=== PATIENT | female | born 1960 | race Caucasian/White ===

== ENCOUNTER → 2017-12-02 | Outpatient (CLI) | payer OTHER ==
[~2017-12-02] MED LIST: ACARBOSE25 MG PO; APAP650 PO; ASPIRIN325 PO; COLACE 100 MG100 MG PO; COLACE100 MG PO; COZAAR 25 MG TA25 M1 PO; CYCLOBENZAPRINE10 MG PO; CYMBALTA PO; CYMBALTA60 MG PO; DIFLUCAN200 MG PO; ELIQUIS5 MG PO; EXCEDRIN SINUS1 EAC2 PO; FERREX 150 PLU1 EAC1 PO; FLUCONAZOLE 10100 MG PO; GABAPENTIN 100100 MG PO; GINGER500 MG PO; GLUCOPHAGE XR500 MG PO; GLUCOPHAGE1000 MG PO; HERBS; HUMALOG100 UNIT/1 SUBQ; HYDROCODON-ACE1 EACH PO; IBUPROFEN 200200 M1 PO; LIDOPATCH1 EACH TOP; LYRICA 50 MG50 MG PO; METFORMIN HCL500 MG PO; MINOCIN100 MG PO; MIRALAX17 GM PO; MOBIC15 MG PO; MS CONTIN30 MG PO; MULTIPLE VIT; NABUMETONE 750750 M1 PO; NORVASC5 MG PO; OXYBUTYNIN 5 MG5 M2 PO; OXYCODONE HCL 55 MG PO; OXYCODONE HCL5 M1 PO; OXYCONTIN10 M1 PO; PERCOCET PO; RELAFEN750 MG PO; RESTORIL15 MG PO; SUBOXONE 8 MG-1 EAC1 SL; SUBOXONE 8 MG-1 EAC2 PO; TRAMADOL 50 MG50 MG PO; TUMERIC/CURCUMIN PO; TYLENOL EX-STR500 M2 PO; VANCO 1 GR1 GM/150 M IV; XARELTO10 MG PO; [UNRECOGNIZED DRUG - OTHER]; [UNRECOGNIZED DRUG - OTHER] PO
== END ==
LOC: M.NUC 11-23 10:11 → M.MRI 12-01 11:30 → M.NUC 09:34 → M.MRI 11:30
DX: M25.552 Pain in left hip (principal); M79.89 Other specified soft tissue disorders; Z96.642 Presence of left artificial hip joint

== ENCOUNTER → 2018-04-09 | Outpatient (CLI) | payer OTHER ==
--- NOTE | ~2018-04-09 | EKG ---
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
[2018-04-09 10:11] LABS: ABSOLUTE BASOPHILS 0.1 thou/uL (0.0-0.2); ABSOLUTE EOSINOPHILS 0.1 thou/uL (0.0-0.7); ABSOLUTE LYMPHOCYTES 3.1 thou/uL (0.8-5.3); ABSOLUTE MONOCYTES 0.9 thou/uL (0.0-1.2); ABSOLUTE NEUTROPHILS 12.6 thou/uL (1.6-8.1); BASOPHILS 0.7 %; EOSINOPHILS 0.5 %; HEMATOCRIT 38.7 % (37.0-47.0); HEMOGLOBIN 12.7 gm/dL (12.0-15.0); LYMPHOCYTES 18.3 %; MCHC 32.9 g/dL (28.0-37.0); MCV 88.3 fL (80.0-100.0); MONOCYTES 5.3 %; MPV 7.2 fl. (7.2-11.1); NUCLEATED RBCS 0 /100WBC; PLATELET COUNT* 557 thou/uL (150-400); POLYS 75.2 %; RBC 4.39 mil/uL (4.20-5.00); RDW-CV 14.2 % (10.5-14.5); WBC 16.7 thou/uL (4.0-11.0)
[2018-04-09 11:24] LABS: ESR (SEDRATE) 24 mm/hr (0-30)
== END ==
LOC: M.RAD 09:37
PROVIDERS: Orthopaedic Surgery
DX: M25.552 Pain in left hip (principal); M16.11 Unilateral primary osteoarthritis, right hip; Z96.642 Presence of left artificial hip joint; Z79.899 Other long term (current) drug therapy; Z79.82 Long term (current) use of aspirin; Z79.84 Long term (current) use of oral hypoglycemic drugs

== ENCOUNTER 2018-06-02 06:17 | Inpatient (IN) | payer OTHER ==
[2018-05-27 08:07] LABS: ABSOLUTE BASOPHILS 0.1 thou/uL (0.0-0.2); ABSOLUTE EOSINOPHILS 0.2 thou/uL (0.0-0.7); ABSOLUTE LYMPHOCYTES 3.2 thou/uL (0.8-5.3); ABSOLUTE MONOCYTES 0.9 thou/uL (0.0-1.2); ABSOLUTE NEUTROPHILS 7.8 thou/uL (1.6-8.1); BASOPHILS 0.5 %; EOSINOPHILS 1.5 %; HEMATOCRIT 38.7 % (37.0-47.0); HEMOGLOBIN 12.6 gm/dL (12.0-15.0); MCH 28.9 pg (26.0-34.0); MCHC 32.6 g/dL (28.0-37.0); MCV 88.7 fL (80.0-100.0); MONOCYTES 7.8 %; MPV 6.9 fl. (7.2-11.1); NUCLEATED RBCS 0 /100WBC; PLATELET COUNT* 562 thou/uL (150-400); POLYS 64.2 %; RBC 4.36 mil/uL (4.20-5.00); RDW-CV 14.5 % (10.5-14.5); WBC 12.2 thou/uL (4.0-11.0)
[2018-05-27 08:18] LABS: APTT 31.9 Seconds (25.0-31.3); PROTIME 9.5 Seconds (9.20-11.50)
[2018-05-27 08:34] LABS: ALBUMIN 3.4 g/dL (3.4-5.0); CALCIUM 9.5 mg/dL (8.5-10.1); CREATININE 0.8 mg/dL (0.6-1.3); POTASSIUM 3.9 mmol/L (3.5-5.1); TOTAL BILIRUBIN 0.1 mg/dL (<0.1-1.0); TOTAL PROTEIN 7.2 g/dL (6.4-8.2)
[2018-05-27 09:17] LABS: ESR (SEDRATE) 41 mm/hr (0-30)
[2018-05-28 02:11] LABS: GLYCOHEMOGLOBIN (HGB A1C) 10.7 % (4.8-5.6)
[~2018-06-02] VITALS: Ht 170.2 cm; Wt 90.7 kg
[~2018-06-02 06:17] MED LIST changes: -COLACE 100 MG100 MG PO; -CYCLOBENZAPRINE10 MG PO; -ELIQUIS5 MG PO; -FERREX 150 PLU1 EAC1 PO; -FLUCONAZOLE 10100 MG PO; -GLUCOPHAGE1000 MG PO; -HUMALOG100 UNIT/1 SUBQ; -LIDOPATCH1 EACH TOP; -MIRALAX17 GM PO; -NORVASC5 MG PO; -RESTORIL15 MG PO; -VANCO 1 GR1 GM/150 M IV
[2018-06-02] MEDS ORDERED: METFORMIN HCL500 MG PO (07:06)
[2018-06-02 07:09] VITALS: BP 154/83
[2018-06-02 16:24] LABS: CALCIUM 8.2 mg/dL (8.5-10.1); CREATININE 1.1 mg/dL (0.6-1.3); POTASSIUM 5.6 mmol/L (3.5-5.1)
[2018-06-02 17:30] VITALS: BP 125/68
--- NOTE | 2018-06-02 19:02 | NUR ---
RECEIVED PT FROM PACU 1700. SHE IS DROWSY, AND ORIENTED X4. VSS. LINE COOK TRACING SR. O2 SAT 93% ON 3L NC. CAPNO MONITOR IN PLACE. ADMISSION ASSESSMENT AND HISTORY COMPLETED. REPOSITIONED FOR COMFORT. IVF INFUSING PER MAR. BED ALARM ON. CALL LIGHT WITHIN REACH. WILL CONTINUE TO MONITOR.
[2018-06-02 20:50] VITALS: BP 138/75
[2018-06-03] VITALS (7 sets, daily range): BP systolic 93–121; BP diastolic 44–75
--- NOTE | 2018-06-03 05:06 | NUR ---
Assumed care of patient at 1930. Full assessment performed and documented; hourly rounding completed for patient safety. Patient c/o severe pain in her left hip the majority of the shift. Pain meds administered as ordered, see NOV. Patient refused to be turned d/t pain. Nurse educated patient on the importance of changing positions frequently after surgery. Monitor shows SR-ST (90s-110s); O2 98% on 3L NC. Patient A&O x4 and drowsy. Right hand IV infusing NS 100 ml/hr. Bailon catheter patent and draining well. Left hip incision site clean and dry, and wound vac in place. Fall precautions in place, call light within patient's reach. Will continue to monitor.
[2018-06-03 05:31] LABS: HEMATOCRIT 28.2 % (37.0-47.0); HEMOGLOBIN 9.1 gm/dL (12.0-15.0); MCH 29.1 pg (26.0-34.0); MCHC 32.4 g/dL (28.0-37.0); MCV 89.8 fL (80.0-100.0); MPV 7.4 fl. (7.2-11.1); RBC 3.14 mil/uL (4.20-5.00); RDW-CV 14.9 % (10.5-14.5); WBC 23.2 thou/uL (4.0-11.0)
[2018-06-03 06:23] LABS: ALBUMIN 2.5 g/dL (3.4-5.0); CALCIUM 7.8 mg/dL (8.5-10.1); CREATININE 1.4 mg/dL (0.6-1.3); MAGNESIUM 1.4 mg/dL (1.8-2.4); POTASSIUM 5.1 mmol/L (3.5-5.1); TOTAL BILIRUBIN 0.3 mg/dL (<0.1-1.0); TOTAL PROTEIN 5.3 g/dL (6.4-8.2)
--- NOTE | 2018-06-03 11:51 | NUR ---
RECEIVED PT CARE 0700. SHE IS ALERT AND ORIENTED X4. VSS. [employer] CONSULTANT TRACING ST WITH BBB. C/O LEFT HIP PAIN, RATES 8/10. PRN PAIN MEDICATION GIVEN WITH PARTIAL RELIEF. LOWER EXTREMITIES ELEVATED ON PILLOWS. SHE REFUSES TO REPOSITION AT TIMES DUE TO HER PAIN LEVEL BEING TOO HIGH, PER THE PATIENT. PICC LINE PLACED PER INFUSION NURSE. IV FLUID BOLUS INFUSING. AM ASSESSMENT CHARTED. MEDS PER NOV. RAYMOND DRAINING CLEAR YELLOW URINE TO DEPENDENT DRAIN. O2 SAT 100% ON 3L NC. TITRATED TO ROOM AIR. CAPNO MONITOR REMOVED. HOURLY ROUNDING CHARTED. CALL LIGHT WITHIN REACH. WILL CONTINUE TO MONITOR.
--- NOTE | 2018-06-03 12:34 | CON ---
[address] [address] CONSULTATION Name: KADEEM SOLIS Room: [address] IN .R.#: [id number] Admission: 06/02/18 Attend Phys: Jey Ronquillo Discharge: Date of : 56 Report #: [id number] THIS REPORT FOR: //name// CC: Shakir Bennett DATE OF SERVICE: 06/02/2018 ATTENDING PHYSICIAN: Yossi Bennett DO. REASON FOR EVALUATION: Septic total hip arthroplasty. HISTORY OF PRESENT ILLNESS: Chart reviewed, patient examined. This is a 57-year-old female, I actually saw in January 2017 with a left thigh abscess. She is post left total hip arthroplasty. She is seen postop. She is a little encephalopathic due to the medication. Apparently, has been going on several days to weeks, has a draining sinus involving left hip. Due to lack of resolution, in spite of the fact that MRI in November was literally unchanged for the last couple of years, did undergo explantation, placement of antibiotic-impregnated cement, has been given some parenteral antimicrobial therapy with vancomycin. ALLERGIES: NONE KNOWN. MEDICATIONS: Include metformin, pantoprazole, apixaban, acetaminophen, insulin, temazepam, p.r.n. analgesics, antiemetics, vancomycin. PAST MEDICAL HISTORY: Diabetes mellitus type 2, previous left total hip arthroplasty, low back surgery, ventral hernia. SOCIAL HISTORY: Smokes a half pack a day. No ethanol or illicit drug use. FAMILY HISTORY: Noncontributory. REVIEW OF SYSTEMS: Somewhat limited due to her postoperative state. PHYSICAL EXAMINATION: GENERAL: She appears somewhat chronically ill. She is in dfuh-ko-gvardqah distress. She does arouse. VITAL SIGNS: Temperature 98.6, pulse 92, respirations 16, blood pressure 154/83. SKIN: Warm, dry, no rashes. HEENT: Otherwise, unremarkable. NECK: Supple. LUNGS: [place] [address] CONSULTATION Name: KADEEM SOLIS Room: [address] IN [facility]#: [id number] Admission: 06/02/18 Attend Phys: Jey Ronquillo Discharge: Date of : 56 Report #: [id number] HEART: Regular. I do not appreciate a murmur. ABDOMEN: Soft. SKIN: She has a wound VAC in place, left hip site. GENITOURINARY: Deferred. RECTAL: Deferred. LABORATORY DATA: Sed rate of 14. Electrolytes: Sodium 134, potassium 5.6, chloride 102, bicarbonate is 24, anion gap of 8, BUN and creatinine 29 and 1.1, glucose has been elevated in the 300s consistently. Lactic acid of 1.7. Operative cultures pending. ASSESSMENT: Left total hip arthroplasty infection, agree with empiric antimicrobial therapy. We will await culture results. Discussed with Dr. Cantu on the unavailability of any recent cultures, we will likely need extended course of parenteral therapy. We will arrange a PICC line in the next couple of days, monitor expectantly. I will go ahead and get a chest x-ray as well. <ELECTRONICALLY SIGNED> By: Gio Reyes MD 06/03/18 1234 1728 [id number] Reyes MD /nt
--- NOTE | 2018-06-03 13:54 | NUR ---
CM attempted to meet with Pt, Pt extremely drowsy and kept falling asleep during assessment. Pt was able to inform CM that she normally resides at home alone and continues to work outside of the home. Discussed possible need for skilled at dc per Drs recommendation, Pt stated that she thinks that she will be fine discharging to home and would be able to manage IVABX if needed. Cm will attempt to meet with Pt later to obtain additional living situation information.
[2018-06-04] VITALS: BP 86/41
[2018-06-04 00:11] LABS: CALCIUM 7.2 mg/dL (8.5-10.1); CREATININE 0.7 mg/dL (0.6-1.3); MAGNESIUM 1.4 mg/dL (1.8-2.4)
[2018-06-04 00:13] LABS: POTASSIUM 3.5 mmol/L (3.5-5.1)
[2018-06-04 05:04] LABS: HEMATOCRIT 22.1 % (37.0-47.0); HEMOGLOBIN 7.2 gm/dL (12.0-15.0); MCHC 32.6 g/dL (28.0-37.0); MCV 88.8 fL (80.0-100.0); MPV 7.6 fl. (7.2-11.1); RBC 2.49 mil/uL (4.20-5.00); RDW-CV 14.6 % (10.5-14.5); WBC 16.5 thou/uL (4.0-11.0)
--- NOTE | 2018-06-04 05:13 | NUR ---
ASSUMED PT CARE REPORT RECEIVED FORM NURSE. PT IS POSRT UP DAY 1 ALERT AWAKE ORIENTED X4 COMPLAINS OF PAIN LEVEL 9 IN LEFT HIP AREA. OXYCONTIN, DILAUDID, AND OXY ADMINSTERED ORDERED AND SCHEDULED DURING THE NIGHT. PT SEEM S NOT TO BE FREE FROM PAIN FOR TOO LONG. WHENEVER SHE IS REPOSITIONED, PAIN IS AT ITS SPIKE. OTHER TECHNIQUES WERE APPLIED SUCH DIM LIGHT, QUIETNESS, AND GENTLE TALK TO RELIEVE PAIN. PT STATUS IS MEDSURG, BUT HR IR REGULAR. IV FLUID INFUSING, VANCO ALSO ADMINISTERED ORDERED. INSULIN 4 UNITS LISPRO GIVEN LAST NIGHT. PT GOT SNACK. ASSESSEMENT PERFORMED REFER TO CHARTING. LEFT HIP DRESSING IS INTACT WOUN VAC FUNTIONING WELL.LITO HOSE IN PLACE, RAYMOND INPLACE. CALL LIGHT AT REACH, LEFT HIP ELEVATED ON PILLOW COMFORTABLE FOR THE PT.
[2018-06-04 05:17] LABS: PREALBUMIN 12.4 mg/dL (18.0-35.7)
[2018-06-04 05:22] LABS: ALBUMIN 1.9 g/dL (3.4-5.0); CALCIUM 7.5 mg/dL (8.5-10.1); CREATININE 0.6 mg/dL (0.6-1.3); MAGNESIUM 1.8 mg/dL (1.8-2.4); POTASSIUM 3.3 mmol/L (3.5-5.1); TOTAL BILIRUBIN 0.2 mg/dL (<0.1-1.0); TOTAL PROTEIN 5.1 g/dL (6.4-8.2)
[2018-06-04 10:53] LABS: % SATURATION 3 % (20-39); IRON < 5 ug/dL (50-175)
--- NOTE | 2018-06-04 12:38 | NUR ---
I have reviewed the documentation by LIUDMILA PERRY from 06/04/18 and I concur with it. EMILIA WARNER
[2018-06-04 16:43] VITALS: BP 123/61
[2018-06-04 20:00] VITALS: BP 109/49
[2018-06-05] VITALS: BP 102/43
[2018-06-05 04:00] VITALS: BP 115/53
[2018-06-05 05:12] LABS: HEMATOCRIT 20.2 % (37.0-47.0); MCH 28.7 pg (26.0-34.0); MCHC 32.9 g/dL (28.0-37.0); MCV 87.2 fL (80.0-100.0); MPV 7.8 fl. (7.2-11.1); RBC 2.32 mil/uL (4.20-5.00); RDW-CV 14.6 % (10.5-14.5); WBC 17.1 thou/uL (4.0-11.0)
[2018-06-05 05:20] LABS: HEMOGLOBIN 6.6 gm/dL (12.0-15.0)
[2018-06-05 05:25] LABS: ALBUMIN 1.8 g/dL (3.4-5.0); CALCIUM 7.6 mg/dL (8.5-10.1); CREATININE 0.6 mg/dL (0.6-1.3); MAGNESIUM 1.7 mg/dL (1.8-2.4); POTASSIUM 2.9 mmol/L (3.5-5.1); TOTAL BILIRUBIN 0.2 mg/dL (<0.1-1.0); TOTAL PROTEIN 5.5 g/dL (6.4-8.2)
--- NOTE | 2018-06-05 05:51 | NUR ---
ASSUMED PT CARE REPORT RECEIVED FROM NURSE. PT IS ALERT AWAKE ORIENTED X 4. COMPLIANS OF PAIN IN LEFT HIP. THAAT IS RELEIVED BY NARCOTICS HAVE RECIEVED NARCO ORDERED AMD SCHEDULED DURING THE SHIFT. Q2 TURN PERFORMED. ELEVATION OF LEFT LEGS TO RELIEVE PRESSURE. LITO HOSE IN PLACE BILATERALLY INLOWER EXTREMITIES. ON RA AND SATURATION ABLVE 95%/ IV VANCO GIVEN SCHEDULED. LIGHT DIN AND QUIETNESS TO PROMOTE REST. THIS AM LAB RESULT WAS CRITICAL. HGB OF 6.6 K OF 2.9. FIRST DOSE OF K AND MAG REPLACEMENT GIVEN. RBC 1 UNIT ORDER RECEIVED FROM DR HOLMAN. CONSENT FRO BLOOD SINGNED. WILL CONTINUE TO MONITOR.
[2018-06-05 08:09] VITALS: BP 111/57
[2018-06-05 10:58] VITALS: BP 130/62; BP 136/61; BP 150/63; BP 151/73
--- NOTE | 2018-06-05 16:17 | NUR ---
POTASSIUM REPLACED. PT RECEIVED 1 UNIT BLOOD. POLAR PACK APPLIED TO LEFT THIGH FOR PAIN CONTROL.
[2018-06-05 17:12] VITALS: BP 129/60
[2018-06-05 20:00] VITALS: BP 105/65
[2018-06-06] VITALS: BP 113/62
--- NOTE | 2018-06-06 02:18 | NUR ---
PT ALERT ORIENTED. BED REST TURN Q 2 HRS. POLAR PACK TO L HIP. PAIN 8/10. PO AND IV PAIN MEDS GIVEN. PT APPEARS TO BE SLEEPING NOW. SEGUNDO JOHNSON. ON RA. MED SURG STATUS.
[2018-06-06 04:00] VITALS: BP 113/69
[2018-06-06 04:51] LABS: HEMATOCRIT 21.7 % (37.0-47.0); HEMOGLOBIN 7.2 gm/dL (12.0-15.0); MCV 87.9 fL (80.0-100.0); MPV 7.1 fl. (7.2-11.1); RBC 2.47 mil/uL (4.20-5.00); RDW-CV 14.7 % (10.5-14.5)
[2018-06-06 05:12] LABS: ALBUMIN 1.7 g/dL (3.4-5.0); CALCIUM 7.9 mg/dL (8.5-10.1); CREATININE 0.5 mg/dL (0.6-1.3); MAGNESIUM 1.6 mg/dL (1.8-2.4); POTASSIUM 3.3 mmol/L (3.5-5.1); TOTAL BILIRUBIN 0.4 mg/dL (<0.1-1.0); TOTAL PROTEIN 5.6 g/dL (6.4-8.2)
--- NOTE | 2018-06-06 06:56 | NUR ---
PT CONTINUES TO TAKE PO AND IV PAIN MEDICATION. SM PORTABLE WOUND VAC TO L HIP.
[2018-06-06 07:50] VITALS: BP 125/53
[2018-06-06 17:12] VITALS: BP 129/70
--- NOTE | 2018-06-06 18:28 | NUR ---
PATIENT RESTING IN BED. TED HURTADOAS UP IN RECLINER MOST OF DAY. PATIENT WORKED WITH PHYSICAL THERAPY THIS AM. PATIENT IS UP WITH 1 WITH WALKER/GAITBELT. PATIENT HAS COMPLAINTS OF PAIN, MEDICATION GIVEN WITH PARTIAL RELIEF. PATIENT GIVEN MIRALAX AND MOM FOR CONSTIPATION, NO BOWEL MOVEMENT TODAY. PATIENT HAS PICC LINE IN PLACE WITH VANCOMYCIN INFUSING AT THIS TIME. PATIENT HAS FAIR APPETITE. PATIENT DENIES ANY NEEDS AT THIS TIME. CALL LIGHT WITHIN REACH. WILL CONTINUE TO MONITOR.
[2018-06-06 19:40] VITALS: BP 168/79
[2018-06-07 04:00] VITALS: BP 140/84
[2018-06-07 04:44] LABS: HEMATOCRIT 22.5 % (37.0-47.0); HEMOGLOBIN 7.3 gm/dL (12.0-15.0); MCHC 32.6 g/dL (28.0-37.0); MCV 88.8 fL (80.0-100.0); MPV 7.4 fl. (7.2-11.1); RBC 2.53 mil/uL (4.20-5.00); RDW-CV 14.7 % (10.5-14.5); WBC 13.7 thou/uL (4.0-11.0)
[2018-06-07 05:13] LABS: ALBUMIN 1.7 g/dL (3.4-5.0); CREATININE 0.5 mg/dL (0.6-1.3); MAGNESIUM 1.7 mg/dL (1.8-2.4); POTASSIUM 3.5 mmol/L (3.5-5.1); TOTAL BILIRUBIN 0.3 mg/dL (<0.1-1.0); TOTAL PROTEIN 5.7 g/dL (6.4-8.2)
--- NOTE | 2018-06-07 05:20 | NUR ---
PT SLEPT ON AND OFF THIS SHIFT. ASSESSMENT DOCUMENTED. MEDS GIVEN PER E-NOV. PICC PATENT. PAIN AND NAUSEA MEDS GIVEN PER E-NOV. WOUND VAC IN PLACE. WILL CONTINUE WITH PLAN OF CARE.
[2018-06-07 10:03] VITALS: BP 117/71
--- NOTE | 2018-06-07 12:17 | NUR ---
FINISHING MANAGER SPOKE TO THE PATIENT TO DISCUSS DISCHARGE PLANNING NEEDS AND IV ABT'S AT D/C. FINISHING MANAGER INFORMED PATIENT OF DIFFERENT BETWEEN HOME WITH IV ABT TEACHING AND SKILLED AT D/C. PATIENT INFORMS THAT SHE 'WOULD LIKE TO GO TO A SKILLED FACILITY, BUT NEED TO GO HOME FOR A FEW HOURS FIRST'. PATIENT CHOSE [facility]. FINISHING MANAGER EXPLAINED WHY GOING HOME FIRST IS NOT POSSIBLE. PATIENT REQUEST TO SPEAK TO THE PHYSICIAN TO EXPLAIN HER REASONING FOR NEEDING GOING HOME FIRST. FINISHING MANAGER CONTACTED MARIA DEL CARMEN AT [facility] TO INFORM OF THE REFERRAL AND FAXED PATIENTS CLINICAL INFO. FINISHING MANAGER ALSO CONTACTED ZOILA TO CHECK BENEFITS IN CASE PATIENT DECIDES TO RETURN HOME AT D/C. TOE TRIMMER AWARE OF SITUATION. CM WILL REMAIN AVAILABLE TO ASSIST AND FOLLOW NEEDED.
[2018-06-07 16:00] VITALS: BP 120/62
--- NOTE | 2018-06-07 18:28 | NUR ---
PT CONSISTENTLY RATES PAIN 7/10 DESPITE MEDICATIONS GIVEN. PT REPORTS SPASMS IN L HIP. MED ORDERED AND GIVEN WITH SOME RELIEF OF SPASM. DRESSING TO L HIP CDI, WOUND VAC IN PLACE. PICC LINE AUGUSTO, SINGLE LUMEN. PT ABLE TO MAKE NEEDS KNOWN, CALL LIGHT IN REACH
[2018-06-07 20:35] VITALS: BP 113/54
[2018-06-07 23:57] VITALS: BP 112/56
[2018-06-08 04:00] VITALS: BP 123/56
[2018-06-08 04:45] LABS: HEMATOCRIT 23.2 % (37.0-47.0); HEMOGLOBIN 7.5 gm/dL (12.0-15.0); MCH 29.1 pg (26.0-34.0); MCHC 32.3 g/dL (28.0-37.0); MCV 90.2 fL (80.0-100.0); MPV 7.2 fl. (7.2-11.1); RBC 2.57 mil/uL (4.20-5.00); RDW-CV 14.8 % (10.5-14.5); WBC 17.7 thou/uL (4.0-11.0)
[2018-06-08 05:05] LABS: CREATININE 0.6 mg/dL (0.6-1.3); MAGNESIUM 1.5 mg/dL (1.8-2.4); POTASSIUM 3.7 mmol/L (3.5-5.1)
--- NOTE | 2018-06-08 06:12 | NUR ---
PT SLEPT ON AND OFF THIS SHIFT. ASSESSMENT DOCUMENTED. MEDS GIVEN PER E-MAR. PICC PATENT. PAIN MEDS GIVEN PER E-MAR PER PATIENT REQUEST. PT UP TO BSC SEVERAL TIMES THIS SHIFT. WOUND VAC IN PLACE. WILL CONTINUE WITH PLAN OF CARE.
[2018-06-08 07:55] VITALS: BP 115/54
[2018-06-08 16:18] VITALS: BP 160/96
--- NOTE | 2018-06-08 17:10 | NUR ---
PATIENT A&OX4, ROOM AIR, RIGHT UPPER ARM PIC SINGLE LUMEN. C/O LEFT HIP PAIN. MEPLEX AND PERVINA WOUND VAC TO LEFT HIP. UP WITH ASSISTX1, WITH GIATBELT AND WALKER. NO BM TODAY. NO OTHER CONCERNS AT THIS TIME. APPROPRAITE AND COOPORATIVE WITH CARE.
[2018-06-08 18:43] LABS: URINE BILIRUBIN NEGATIVE (Negative); URINE BLOOD NEGATIVE (Negative); URINE CLARITY CLEAR; URINE COLOR YELLOW; URINE GLUCOSE-RANDOM NEGATIVE (Negative); URINE KETONES NEGATIVE (Negative); URINE LEUKOCYTES-REFLEX NEGATIVE (Negative); URINE NITRITE-REFLEX NEGATIVE (Negative); URINE PROTEIN NEGATIVE (Negative); URINE SPECIFIC GRAVITY <= 1.005 (1.005-1.030); URINE UROBILINOGEN 0.2 E.U./dl (0.2-1.0)
[2018-06-09 00:30] VITALS: BP 127/63
[2018-06-09 04:00] VITALS: BP 126/64
--- NOTE | 2018-06-09 05:11 | NUR ---
PATIENT HAS REMAINED ALERT AND ORIENTED X 4 THROUGHOUT THE SHIFT AND RESTING QUIETLY AT HOURLY ROUNDS. MEDICATED Q3H WITH ORAL PAIN MEDICAITON AND ADDITIONALLY SCHEDULED ORAL PAIN MEDICAITON AND 2 DOSES OF FLEXERIL. PATIENT CONTINUES TO STATE PAIN 7-05/07. PREVENA WOUND VAC INTACT LEFT HIP. LEFT HIP/THIGH REMAINS QUITE EDEMATOUS AND WARM TO TOUCH. IV ANTIBIOTICS PROVIDED PER ORDERS. AFEBRILE, VITAL SIGNS STABLE. TRANSFERING TO [facility] [place] MAINTAINING 50% WEIGHT-BEARING, WALKER AND GAIT BELT. MAGNESIUM REPLACED OVER THE LAST 24 HOURS. RE-DRAW THIS AM. CONTINUE TO MONITOR.
[2018-06-09 06:40] LABS: HEMATOCRIT 24.3 % (37.0-47.0); HEMOGLOBIN 7.9 gm/dL (12.0-15.0); MCH 29.2 pg (26.0-34.0); MCHC 32.4 g/dL (28.0-37.0); MPV 6.6 fl. (7.2-11.1); RBC 2.7 mil/uL (4.20-5.00); RDW-CV 15.4 % (10.5-14.5); WBC 18.7 thou/uL (4.0-11.0)
[2018-06-09 07:13] LABS: ALBUMIN 1.9 g/dL (3.4-5.0); CALCIUM 8.2 mg/dL (8.5-10.1); CREATININE 0.6 mg/dL (0.6-1.3); MAGNESIUM 1.8 mg/dL (1.8-2.4); TOTAL BILIRUBIN 0.2 mg/dL (<0.1-1.0); TOTAL PROTEIN 5.7 g/dL (6.4-8.2)
[2018-06-09 07:55] VITALS: BP 116/64
[2018-06-09] MEDS ORDERED: RESTORIL15 MG PO (10:44)
[2018-06-09] MEDS ORDERED: OXYCODONE HCL 55 MG PO (10:44)
[2018-06-09] MEDS ORDERED: FERREX 150 PLU1 EAC1 PO (10:44)
[2018-06-09] MEDS ORDERED: COLACE 100 MG100 MG PO (10:44)
[2018-06-09] MEDS ORDERED: FLUCONAZOLE 10100 MG PO (10:44)
[2018-06-09] MEDS ORDERED: MIRALAX17 GM PO (10:44)
[2018-06-09] MEDS ORDERED: ELIQUIS5 MG PO (10:44)
[2018-06-09] MEDS ORDERED: LIDOPATCH1 EACH TOP (10:44)
[2018-06-09] MEDS ORDERED: CYCLOBENZAPRINE10 MG PO (10:44)
[2018-06-09 13:22] VITALS: BP 116/64
--- NOTE | 2018-06-09 13:44 | NUR ---
NOTIFIED MARIA DEL CARMEN/[facility] THAT PT.HAS DISCHARGE ORDERS. SHE SAID SHE IS STILL WAITING ON INSURANCE AUTHORIZATION. PT.'S FRIEND CANNOT TRANSPORT PT.TODAY SO WILL NEED VAN. MARIA DEL CARMEN HOPES TO GET AUTH BY LATER TODAY. INFORMED NURSING.
[2018-06-09 15:53] VITALS: BP 113/72
--- NOTE | 2018-06-09 17:43 | NUR ---
PATEINT A&OX4, ROOM AIR, RIGHT UPPER ARM PIC SINGLE LUMEN SALINE LOCK WITH ABX. UP WITH ASSISTX1 WITH WALKER AND GIATBELT. LEFT HIP ABX SPACER, MEPLEX DRESSING IN PLACE, WOUND VAC DISCONTINUED BY PHYSICIAN TODAY. PATIENT PLANNED FOR DISCHARGE TO [facility] TODAY, STILL AWAITING INSURANCE AUTHARIZATION. C/O PIAN, PARTIAL RELIEF WITH MEDICATION. COLACE, MIRALAX, AND MILK OF MAG GIVEN FOR BOWEL MOVEMENT, NO RESULTS AT THIS TIME. NO OTHER CONCERNS AT THIS TIME. APPROPRIATE AND COOPORATIVE WITH CARE.
[2018-06-09 20:35] VITALS: BP 124/56
[2018-06-10 00:20] VITALS: BP 126/72
[2018-06-10 04:00] VITALS: BP 127/61
--- NOTE | 2018-06-10 06:20 | NUR ---
PATIENT HAS REMAINED ALERT AND ORIENTED X 4 THROUGHOUT THE SHIFT AND RESTING AT INTERVALS ON HOURLY ROUNDS. UP IN CHAIR DURING THE NIGHT. PATIENT HAS NOTED A SHARP PAIN DISTAL INCISION AREA WITH FLEXION LEFT KNEE BACK WHEN POSITIONING TO STAND OR DOING HER BED EXERCISES. OVERALL PAIN REMAINS AT 6/10 AND HAS REQUESTED PRN PAIN MEDICATION Q3H. DRESSING INTACT WITH MOD AREA CONTAINED DRAINAGE. LITO HOSE WASHED OVERNIGHT AFTER GETTING WET WITH A VOID. EDEMA LLE, ESPECIALLY AT HIP/THIGH, REMAINS. ANTIBIOTICS PER ORDERS PROVIDED. VITAL SIGNS STABLE. CONTINUE TO MONITOR.
[2018-06-10 08:30] VITALS: BP 128/72
[2018-06-10 08:32] LABS: HEMATOCRIT 23.3 % (37.0-47.0); HEMOGLOBIN 7.4 gm/dL (12.0-15.0); MCH 28.9 pg (26.0-34.0); MCHC 31.9 g/dL (28.0-37.0); MCV 90.7 fL (80.0-100.0); MPV 7.4 fl. (7.2-11.1); NUCLEATED RBCS 0 /100WBC; PLATELET COUNT* 572 thou/uL (150-400); RBC 2.57 mil/uL (4.20-5.00); RDW-CV 15.3 % (10.5-14.5); WBC 14.9 thou/uL (4.0-11.0)
[2018-06-10 08:55] LABS: CALCIUM 7.9 mg/dL (8.5-10.1); CREATININE 0.5 mg/dL (0.6-1.3)
[2018-06-10 10:19] LABS: ABSOLUTE EOSINOPHILS 0.4 thou/uL (0.0-0.7); ABSOLUTE LYMPHOCYTES 2.4 thou/uL (0.8-5.3); ABSOLUTE MONOCYTES 0.9 thou/uL (0.0-1.2); ABSOLUTE NEUTROPHILS 11.2 thou/uL (1.6-8.1); METAMYELOCYTES 1 %; MYELOCYTES 4 %
[2018-06-10 10:24] LABS: PLATELET ESTIMATE INCREASED
[2018-06-10 10:26] LABS: ANISOCYTOSIS 1+; HYPOCHROMASIA 2+; MACROCYTES 1+; MICROCYTES 1+; POIKILOCYTOSIS 1+; POLYCHROMASIA 2+
[2018-06-10 10:27] LABS: TARGET CELLS 1+
--- NOTE | 2018-06-10 11:52 | NUR ---
Nutrition: Pt assessed yday for LOS, and pt was supposed to discharge. Pt was awaiting insurance auth for SNF. Pt will discharge today. No nutrition interventions needed. Low risk.
--- NOTE | 2018-06-10 16:00 | NUR ---
MARIA DEL CARMEN[facility] CALLED CM AND SAID THEY RECEIVED INSURANCE AUTH ON PT. HOWEVER, THEY WILL NOT HAVE A BED AVAILABLE. THE PT.THAT'S ROOM THEY WERE GOING TO GIVE THIS, PT.IS NOT LEAVING. MALA TILLMAN SPOKE WITH PT. PT.SAID IT WAS "OK TO FAX REFERRAL ANYWHERE". CM FAXED REFERRAL TO [facility].
--- NOTE | 2018-06-10 16:22 | NUR ---
PATIENT HAS BEEN DC'D FOR 2 DAYS NOW. WE ARE STILL WAITING ON A BED AT A FACILITY. ALERT AND ORIENTED X'S 4. VITAL SIGNS AND SPO2 STABLE. TOLERATED DIET, NO NAUSEA AND VOMITING. PASSED BM TODAY, VOIDED WITHOUT ISSUE. DENIED PAIN. COMPLETED HOURLY ROUNDING. CALL LIGHT WITHIN REACH. WILL CONTINUE TO MONITOR.
[2018-06-10 21:00] VITALS: BP 104/44; BP 107/44
--- NOTE | 2018-06-11 05:51 | NUR ---
PATIENT REMAINS ALERT AND ORIENTED X4 THROUGHOUT FHIST. VITAL SIGNS STABLE ON ROOM AIR. PICC LINE PATENT IN THE RIGHT UPPER ARM SALINE LOCKED. PAIN MANAGED WITH PO MEDICATION. DENIES NAUSEA. TRANSFERS WITH ASSIST X1 WITH GAITBELT AND WALKER TO THE BEDSIDE COMMODE. MAINTAINED 50% WEIGHT BEARING ON LEFT LEG. TOLERATING DIET. POLAR PACK IN PLACE TO LEFT HIP. MEPILEX DRESSING CLEAN, DRY AND INTACT. RESTING COMFORTABLY THROUGHOUT THE NIGHT. CALL LIGHT WITHIN REACH. NURSING WILL CONTINUE TO MONITOR.
--- NOTE | 2018-06-11 10:49 | NUR ---
CALL OUT TO [facility] TO SEE IF THEY CAN ACCEPT PT. SPOKE WITH JEREMIAH/RUSS JACKMAN. THEY ARE REVIEWING REFERRAL. CALL BACK FROM FELICITAS/GOKUL,WHO STATED THEY ARE GOING TO HAVE TO CHECK WITH [facility] TO SEE IF THEY CAN ACCEPT PT.DUE TO THE COST OF THE IV VANC,SINCE IT IS Q 8HRS. THEY WILL THEN NEED TO GET INS. AUTHORIZATION.
[2018-06-11 16:50] VITALS: BP 120/57
--- NOTE | 2018-06-11 19:34 | NUR ---
ALERT AND ORIENTED X4. UP WITH ASSIST X1 WITH WALKER AND GAIT BELT TO COMMODE. PICC IS PATENT AND SALINE LOCKED. PAIN BEING MANAGED WITH PO PAIN MEDICATION. DENIES NAUSEA. PT/OT WORKED WITH PATEINT THIS SHIFT. WAITING ON SKILLED PLACEMENT FOR DC. DRESSING CHANGED WITH DR. PICKARD THIS AM, C/D/I. VSS ON ROOM AIR. HOURLY ROUNDS HAVE BEEN MAINTAINED THROUGHOUT SHIFT. CALL LIGHT IS WITHIN REACH. NURSING WILL CONTINUE TO MONITOR.
[2018-06-11 20:00] VITALS: BP 138/64
[2018-06-12 00:40] VITALS: BP 121/62
[2018-06-12 05:13] LABS: HEMATOCRIT 21.6 % (37.0-47.0); HEMOGLOBIN 7.1 gm/dL (12.0-15.0); MCH 29.7 pg (26.0-34.0); MCHC 32.8 g/dL (28.0-37.0); MCV 90.5 fL (80.0-100.0); MPV 6.9 fl. (7.2-11.1); RBC 2.38 mil/uL (4.20-5.00); RDW-CV 15.4 % (10.5-14.5); WBC 11.1 thou/uL (4.0-11.0)
--- NOTE | 2018-06-12 05:37 | NUR ---
ASSUMED CARE OF PATIENT AT 1900 O2 SAT IS MAINTAINED ON RA THE PATIENT CONTINUES TO GET UP WITH ASSIST X 1 with walker TO THE [facility] [place] [place] WEIGHT BEARING LIMITATIONS CONTINUE ROUTINE INTERVENTIONS CONTINUE TO BE EFFECTIVE FOR SX MANAGEMENT FREQUENT DRESSING CHANGES THIS SHIFT FO LEFT HIP SEROSANGUINOUS DRAINAGE IN MODERATE TO LARGE AMOUNTS NOTED COMING FROM SITE PATIENT CONTINUES TO PROGRESS TOWARDS GOALS SAFETY INTERVENTIONS CONTINUE BED LOWERED WHEELS LOCKED SIDE RAILS UP X 2 CALL LIGHT IN REACH REPORT TO BE GIVEN TO ONCYOSSI TALLEY
[2018-06-12 06:11] LABS: CALCIUM 7.9 mg/dL (8.5-10.1); CREATININE 0.6 mg/dL (0.6-1.3); MAGNESIUM 1.9 mg/dL (1.8-2.4); POTASSIUM 3.6 mmol/L (3.5-5.1)
[2018-06-12 08:00] VITALS: BP 124/53
--- NOTE | 2018-06-12 14:57 | NUR ---
Called Randy Oliver and am awaiting return call re: bed availability and acceptance. Referral sent to [place].
[2018-06-12 16:01] VITALS: BP 115/56
--- NOTE | 2018-06-12 19:12 | NUR ---
PT ALERT AND ORIENTED X 4. PT ADMINISTERED PO PAIN MEDICATION DURING SHIFT. DENIES NAUSEA. PICC LINE RIGHT UPPER ARM PATENT. PROVENA PLACED ON LEFT HIP INCISION AT 0810. PT UP WITH MIN ASSIST X 1. THIGH HIGH LITO HOSE ON. POLAR PACK IN USE ON LEFT HIP. VS STABLE. HOURLY ROUNDS MAINTAINED. WILL USE CALL LIGHT FOR ASSIST. CALL LIGHT WITHIN REACH. NURSING TO CONTINUE TO MONITOR.
[2018-06-12 19:45] VITALS: BP 123/50
[2018-06-13 04:32] LABS: HEMOGLOBIN 7.2 gm/dL (12.0-15.0); MCH 29.4 pg (26.0-34.0); MCHC 32.7 g/dL (28.0-37.0); MCV 89.8 fL (80.0-100.0); MPV 6.8 fl. (7.2-11.1); RBC 2.45 mil/uL (4.20-5.00); RDW-CV 15.5 % (10.5-14.5); WBC 12.6 thou/uL (4.0-11.0)
[2018-06-13 04:52] LABS: ALBUMIN 1.9 g/dL (3.4-5.0); CALCIUM 7.9 mg/dL (8.5-10.1); CREATININE 0.7 mg/dL (0.6-1.3); MAGNESIUM 1.8 mg/dL (1.8-2.4); POTASSIUM 4.1 mmol/L (3.5-5.1); TOTAL BILIRUBIN 0.1 mg/dL (<0.1-1.0); TOTAL PROTEIN 5.3 g/dL (6.4-8.2)
--- NOTE | 2018-06-13 04:56 | NUR ---
PATIENT REMAINS ALERT AND ORIENTED X4 THROUGHOUT SHIFT. VITAL SIGNS STABLE ON ROOM AIR. PICC LINE PATENT IN THE RIGHT UPPER ARM. INFUSED ANTIBIOTICS PER ORDERS. PAIN MANGED WITH PO MEDICATION. DENIES NAUSEA. TOLERATING DIET. TRANSFERS WITH ONE ASSIST TO THE BEDSIDE COMMODE WITH WALKER. PATIENT HAS BEEN REQUESTING TO WALK AROUND ROOM. PATIENT EDUCATION ON 50% WEIGHT BEARING ON LEFT LEG. AMBULATING AROUND ROOM WITH NURSING STAFF ASSIST. POLAR PACK IN PLACE. LITO HOSE AND SCD'S IN PLACE. REPOSITIONING SELF IN BED. HOURLY ROUNDING COMPLETE. NURSING WILL CONTINUE TO MONITOR.
[2018-06-13 08:00] VITALS: BP 119/55
[2018-06-13 16:33] VITALS: BP 152/87
[2018-06-13] MEDS ORDERED: NORVASC5 MG PO (17:30)
[2018-06-13 17:40] VITALS: BP 121/42; BP 133/56; BP 134/57; BP 137/58
--- NOTE | 2018-06-13 19:43 | NUR ---
PT ALERT AND ORIENTED X 4. FLAT AFFECT. PAIN WAS MANAGED WITH PO PAIN MEDS. DENIES NAUSEA. PICC LINE PATENT. PREVENA WOUND VAC CANNISTER CHANGED X 2. PT UP WITH SBA X 1. VS STABLE. HOURLY ROUNDS MAINTAINED. WILL USE CALL LIGHT FOR ASSISTANCE. CALL LIGHT WITHIN REACH. 1 UNIT OF PRBCS INFUSING PER ORDER DUE TO HGB @ 7.2 AT 1730. NURSING TO CONTINUE TO MONITOR.
[2018-06-13 19:53] VITALS: BP 134/57
--- NOTE | 2018-06-14 05:30 | NUR ---
PATIENT HAS REMAINED ALERT AND ORIENTED X 4 THROUGHOUT THE SHIFT AND RESTING QUIETLY ON HOURLY ROUNDS. UP TO BSC X 4. MOD BM. ALSO AMBULATED WITH STAFF IN ROOM TO DOOR AND BACK X 2. STEADY GAIT MAINTAINING 50% WEIGHT BEARING. ONE UNIT BLOOD COMPLETED THIS SHIFT. PATIENT TOLERATED WELL. MEDICATED FOR PAIN X 3. PATIENT CONSISTENTLY RATING HER PAIN 6/10. LITO YOUNG, SCD'S AND [facility] IN USE. PREVENA WOUND VAC TO LEFT HIP. CAASSETTE CHANGED X 2 OVERNIGHT. SEROSANGUINEOUS DRAINAGE. VITAL SIGNS STABLE. CONTINUE TO MONITOR.
[2018-06-14] MEDS ORDERED: OXYCODONE HCL 55 MG PO (08:39)
[2018-06-14] MEDS ORDERED: GLUCOPHAGE1000 MG PO (08:39)
[2018-06-14] MEDS ORDERED: HUMALOG100 UNIT/1 SUBQ (08:39)
[2018-06-14] MEDS ORDERED: OXYCONTIN10 M1 PO (08:39)
[2018-06-14 08:40] VITALS: BP 145/61
[2018-06-14 09:06] LABS: HEMATOCRIT 27.3 % (37.0-47.0); HEMOGLOBIN 8.8 gm/dL (12.0-15.0); MCH 29.1 pg (26.0-34.0); MCHC 32.4 g/dL (28.0-37.0); MCV 89.7 fL (80.0-100.0); RBC 3.04 mil/uL (4.20-5.00); RDW-CV 15.1 % (10.5-14.5); WBC 13.7 thou/uL (4.0-11.0)
[2018-06-14 09:09] LABS: CALCIUM 8.5 mg/dL (8.5-10.1); CREATININE 0.7 mg/dL (0.6-1.3)
--- NOTE | 2018-06-14 09:25 | NUR ---
SPOKE WITH RICHIE/JESSE HARRELL. SHE IS CALLING FOR INSURANCE AUTH THIS AM. SHE WILL LET CM KNOW WHEN/IF OBTAINED.
--- NOTE | 2018-06-14 15:10 | NUR ---
PREVENA WOUND VAC CANNISTER CHANGED AT THIS TIME. DR. GASCA AND DR. PICKARD INFORMED OF INCREASED DRAINAGE THIS AM.
[2018-06-14 16:00] VITALS: BP 152/58
--- NOTE | 2018-06-14 16:30 | NUR ---
RICHIE/JESSE HARRELL STILL WORKING ON GETTING AUTH FROM INSURANCE. SHE DOES NOT FEEL IT WILL HAPPEN TODAY. SHE SAID INSURANCE AUTH PROCESS IS DIFFERENT. THE REQUESTED AUTH PROCESS JUST GOES TO A BRI DUGGAN AT INSURANCE AND IT IS UP TO THEM TO GIVE THE AUTH. THERE IS NO DEDICATED REVIEWER THAT DOES JUST THE AUTHORIZATIONS.
--- NOTE | 2018-06-14 16:39 | 2DMMODE ---
[place] [address] 2 D/M-MODE ECHOCARDIOGRAM Name: KADEEM SOLIS Room: [address] IN [facility]#: [id number] Admission: 06/02/18 Attend Phys: Yossi Bennett Discharge: Date of : 56 Date of Service: 06/14/18 1638 Report #: [id number] THIS REPORT FOR: //name// APPROVED REPORT Study performed: 06/14/2018 10:02:20 EXAM: Comprehensive 2D, Doppler, and color-flow Echocardiogram Patient Location: In-Patient Room #: [facility] Status: routine BSA: 2.02 HR: 77 bpm BP: 134/57 mmHg Rhythm: NSR Other Information Study Quality: Good Indications Murmur 2D Dimensions IVSd: 10.05 (7-11mm) LVOT Diam: 19.49 (18-24mm) LVDd: 45.48 mm PWd: 11.42 (7-11mm) Ascending Ao: 30.42 (22-36mm) LVDs: 29.92 (25-40mm) Aortic Root: 31.68 mm Volumes Left Atrial Volume (Systole) LA ESV Index: 25.10 mL/m2 Aortic Valve AoV Peak Hilario.: 1.97 m/s AO Peak Gr.: 15.58 mmHg LVOT Max P.54 mmHg AO Mean Gr.: 8.46 mmHg LVOT Mean P.47 mmHg LVOT Max V: 1.37 m/s AO V2 VTI: 38.78 cm LVOT Mean V: 0.84 m/s FLEX (VTI): 2.25 cm2 LVOT V1 VTI: 29.21 cm Mitral Valve E/A Ratio: 1.06 MV Decel. Time: 211.34 ms MV E Max Hilario.: 1.10 m/[place] [address] 2 D/M-MODE ECHOCARDIOGRAM Name: KADEEM SOLIS Room: [address] IN .R.#: [id number] Admission: 06/02/18 Attend Phys: Yossi Bennett Discharge: Date of : 56 Date of Service: 06/14/18 1638 Report #: [id number] MV PHT: 61.29 ms MVA (PHT): 3.59 cm2 TDI E/Lateral E': 6.88 E/Medial E': 8.46 Medial E' Hilario.: 0.13 m/s Lateral E' Hilario.: 0.16 m/s Pulmonary Valve PV Peak Hilario.: 1.26 m/s PV Peak Gr.: 6.37 mmHg Tricuspid Valve RAP Estimate: 5.00 mmHg TR Peak Gr.: 28.48 mmHg RVSP: 33.48 mmHg PA Pressure: 33.48 mmHg Left Ventricle The left ventricle is normal size. There is normal LV segmental wall motion. There is normal left ventricular wall thickness. Left ventricular systolic function is normal. The left ventricular ejection fraction is within the normal range. LVEF is 60-65%. The left ventricular diastolic function is normal. Right Ventricle The right ventricle is normal size. The right ventricular systolic function is normal. Atria The left atrium size is normal. The right atrium size is normal. Aortic Valve The aortic valve is normal in structure. No aortic regurgitation is present. There is no aortic valvular stenosis. Mitral Valve The mitral valve is normal in structure. Mild mitral regurgitation. No evidence of mitral valve stenosis. Tricuspid Valve The tricuspid valve is normal in structure. Mild tricuspid regurgitation estimated pa pressure 35 mm Hg Pulmonic Valve Pulmonic valve is not well visualized. There is no pulmonic valvular regurgitation[place] [address] 2 D/M-MODE ECHOCARDIOGRAM Name: KADEEM SOLIS Room: [address] IN ..#: [id number] Admission: 06/02/18 Attend Phys: Yossi Bennett Discharge: Date of : 56 Date of Service: 06/14/18 1638 Report #: [id number] Great Vessels The aortic root is normal in size. IVC is normal in size and collapses with >50% inspiration Pericardium There is no pericardial effusion. <Conclusion> LVEF is 60-65%. Mild mitral regurgitation. Mild tricuspid regurgitation estimated pa pressure 35 mm Hg <ELECTRONICALLY SIGNED> By: Alan Espino MD, FACC 06/14/18 1638 1638 1638 Alan Espino MD, FACC /INF
--- NOTE | 2018-06-14 17:41 | NUR ---
PT REMAINED ALERT AND ORIENTED THIS SHIFT. PT IS ON RA. PT IS 50% WT BEAR TO LT. HIP. PT IS STANDY BY ASSIST WITH WALKER. R. PICC SINGLE LUMEN IN PLCE. L. HIP DRAINING AND PROVENA CHANGED ONCE THIS SHIFT. POLAR PACK IN PLACE. PT REQUESTED OXY IR, FLEXERIL, AND IBUPROFEN. CALL LIGHT IN REACH. BED ALARM ON. WILL CONTINUE TO MONITOR.
--- NOTE | 2018-06-14 18:31 | NUR ---
NURSING DOCUMENTATION BY TREMAYNE Cristina RN REVIEWED
[2018-06-15 00:20] VITALS: BP 151/62
[2018-06-15 04:30] VITALS: BP 160/65
[2018-06-15 08:00] VITALS: BP 142/57
[2018-06-15 08:09] LABS: HEMATOCRIT 26.8 % (37.0-47.0); HEMOGLOBIN 8.7 gm/dL (12.0-15.0); MCH 29.2 pg (26.0-34.0); MCHC 32.3 g/dL (28.0-37.0); MCV 90.2 fL (80.0-100.0); MPV 6.7 fl. (7.2-11.1); RBC 2.97 mil/uL (4.20-5.00); WBC 12.9 thou/uL (4.0-11.0)
--- NOTE | 2018-06-15 08:19 | NUR ---
PATIENT HAS SLEPT OFF AND ON DURING SHIFT. PAIN WELL CONTROLLED WITH ORAL PAIN MEDICATIONS AND CHARTED. VSS ON RA. DRESSING TO LEFT HIP IS C/D/I. ORTHO HERE THIS AM AND CHANGED DRESSING AND REMOVED INCISION WOUND VAC. PICC LINE TO RIGHT UPPER ARM-SL. PATIENT IS UP TO [facility] GAITBELT AND WALKER AND IS STEADY ON FEET. LITO HOSE AND SCD'S IN PLACE. PATIENT INSTRUCTED TO USE CALL LIGHT WHEN NEEDING ASSISTANCE. HOURLY ROUNDS MADE. WILL CONTINUE WITH PLAN OF CARE AND NURSING TO MONITOR.
[2018-06-15 09:02] VITALS: BP 116/64
--- NOTE | 2018-06-15 12:03 | NUR ---
PT.HAVING ALOT OF DRAINAGE FROM HIP WOUND. [employer] WOUND VAC PLACED BY JOCELINE,CHROME TANNER. WANTS ONLY [employer] WOUND VAC,NO OTHER BRAND. NOTIFIED RICHIE/JESSE HARRELL. ORTHO SAID HE WANTS PT.DISCHARGED TODAY. SEE ORDER.
--- NOTE | 2018-06-15 13:00 | NUR ---
FAXED ADDITIONAL CLINICAL INFORMATION TO RICHIE/JESSE HARRELL. SHE WILL SEND TO INSURANCE. 7002-CM LEFT MESSAGE FOR CM AT PT'S INSURANCE TO CALL THIS CM BACK. DECEMBER,RN/JAMIR CALLED ME BACK. SHE SAID AUTH REQUEST FROM JESSE WAS CALLED IN YESTERDAY AM. EXPLAINED SITUATION OF LONG WAIT TO GET AUTH EVEN THO SNF WAS [facility] AT A DIFFERENT FACILITY LAST WEEK AND THEN THEY DID NOT HAVE A BED. SHE SAID I COULD FAX IN INFORMATION DIRECTLY. FAXED UPDATED CLINICALS TO RONALD Fortune/JAMIR [phone].
--- NOTE | 2018-06-15 14:35 | NUR ---
WOUND CARE NOTE: ASSISTED TEAM WITH SWITCHING PREVENA TO VAC ULTA DUE TO AMOUNT OF DRAINAGE FROM INCISION SITE. PATIENT STILL REMAINS WITH PREVENA DRESSING, BUT NOW HAS VAC ULTA MACHINE.
--- NOTE | 2018-06-15 15:08 | NUR ---
PATIENT STATED THE PT MADE HER UNCOMFORTABLE THIS AFTERNOON BECAUSE HE PUT HIS HAND ON HER BACK TO LONG. REQUESTED ANOTHER PT FOR PATIENT. PATIENT HAD A VISITOR IN ROOM DURING PT SESSION THIS AFTERNOON.
--- NOTE | 2018-06-15 15:10 | NUR ---
DR. JERNIGAN NOTIFIED THAT DR. PICKARD WAS CONCERNED OF A POSSIBLE SERMOA AT SURGICAL SITE. ALSO INFORMED THAT THE PREVENA WOUND VAC WAS ATTACHED TO THE LARGER WOUND VAC CANNISTER DUE TO INCREASE IN DRAINAGE.
[2018-06-15 16:00] VITALS: BP 146/58
--- NOTE | 2018-06-15 16:20 | NUR ---
CALL FROM RICHIE/JESSE HARRELL. SHE HAS RECEIVED AUTH FROM PT.'S INSURANCE. THEY ARE WAITING ON DELIVERY OF [employer] WOUND VAC, WHICH IS PROMISED FOR TOMORROW AM. SHE SAID SHE WILL CALL WHEN IS ARRIVES. MAYANK BENNETT NOTIFIED.
--- NOTE | 2018-06-15 18:22 | NUR ---
PT REMAINED ALERT AND ORIENTED. PT HAS WOUND VAC APPLIED TO LEFT HIP INCISION. SEROSANGUINOUS DRAINAGE. PT HAS C/O PAIN, OXYCONTIN SCHEDULED ADMINISTERED, OXY IR ADMINISTERED AND SCHEDULED PRN Q4, LAST GIVEN 1622. FLEXERIL REQUESTED BY PT, LAST GIVEN 1622 AND CAN BE GIVEN PRN Q6. PT REQUESTS MEDICATIONS RIGHT WHEN THEY ARE AVAILABLE TO BE GIVEN. PT HAS BEEN UP WITH STANDBY TO BATHROOM. PLACEMENT FOUND FOR PT TO DC TOMORROW. CALL LIGHT IN REACH. BED ALARM ON. WILL CONTINUE TO MONITOR.
--- NOTE | 2018-06-15 18:36 | NUR ---
NURSING DOCUMENTATION BY TREMAYNE Cristina RN REVIEWED
[2018-06-16] VITALS: BP 178/95
[2018-06-16 04:00] VITALS: BP 148/69
[2018-06-16 05:29] LABS: HEMATOCRIT 25.8 % (37.0-47.0); HEMOGLOBIN 8.3 gm/dL (12.0-15.0); MCH 28.6 pg (26.0-34.0); MCHC 32.2 g/dL (28.0-37.0); MPV 7.2 fl. (7.2-11.1); RBC 2.9 mil/uL (4.20-5.00); RDW-CV 15.1 % (10.5-14.5); WBC 11.3 thou/uL (4.0-11.0)
--- NOTE | 2018-06-16 06:30 | NUR ---
PATIENT HAS BEEN RESTLESS DURING THE NIGHT AT TIMES. MEDICATION GIVEN ORDERED AND CHARTED. VSS ON RA. NO C/O NAUSEA OR VOMITING. PATIENT IS UP WITH ASSIST X 1 WITH GAITBELT AND WALKER TO THE BATHROOM. DRESSING TO LEFT HIP IS C/D/I AND WOUND VAC IN PLACE WITH SMALL AMOUNT OF SEROSANGUINOUS DRAINAGE. LITO YOUNG AND SCD'S ON. PATIENT INSTRUCTED TO USE CALL LIGHT WHEN NEEDING ASSISTANCE. FALL PRECAUTIONS IN PLACE AND HOURLY ROUNDS MADE. WILL CONTINUE WITH PLAN OF CARE AND NURSING TO MONITOR.
[2018-06-16 08:00] VITALS: BP 134/56
--- NOTE | 2018-06-16 08:10 | OP ---
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 PROCEDURE: 1. Explantation of left total hip prosthesis. 2. Irrigation and debridement of left hip to bone. 3. Fluoroscopy greater than 1 hour. 4. Extended trochanteric osteotomy, left femur. SURGEON: Shakir Cantu DO IMCU SPECIALIST: Nima Cadena DO ANESTHESIA: General with local periarticular block. FLUIDS: Lactated Ringer's. ANTIBIOTICS: 1 gram vancomycin IV after deep intraoperative tissue cultures were taken. ESTIMATED BLOOD LOSS: 500 mL. DRAINS: None. SPECIMENS: None. COMPLICATIONS: None. ORTHOPEDIC IMPLANTS: Biomet antibiotic cement spacer system. Other is 1 gram of tranexamic acid IV preoperatively. HISTORY: The patient presents today for explantation of the left total hip arthroplasty. She was implanted in approximately 2011. She did well with this. She did develop an abscess at the site of her incision approximately [address] [place] [address] OPERATIVE REPORT Name: AZRA SPIVEYАннаKADEEM Milner Room: [address] M.R.#: [id number] Admission: 06/02/18 Attend Phys: Jey Ronquillo Discharge: Date of : 56 Report #: [id number] ago. Superficial I and D was performed, which showed no evidence of tracking deep to the tensor fascia. It healed well, but then recurred again within the recent months. MRI showed suspected sinus tract to the joint. She has had continued drainage, purulent in nature. She has not had systemic illness. She has been able to continue to work. Radiographs show no signs of osteolysis or loosening. A 3-phase bone scan showed only some slight amount of activity at the superior acetabulum, nothing on the stem. But based on the suspicion of a draining sinus tract from the hip joint, we have recommended explantation with antibiotic spacer placement in order to accommodate staged revision arthroplasty. Risks, benefits, complications, indications and alternatives were discussed. She has voiced understanding as well as signed consent to proceed. Risks include but are not limited to fracture, infection, neurovascular injury, continued pain, loss of motion, need for subsequent revision surgery, DVT, PE, KS, stroke, and even . DESCRIPTION OF PROCEDURE: The patient was taken to the operative suite and placed in the supine position, given the benefit of general anesthetic, placed on a Richmond table. Both feet were placed in traction boots. Left hip was sterilely prepped and draped in usual fashion. Proper operative site was confirmed with standard timeout technique. A direct anterior incision was utilized and extended both proximally and distally. Dissection was carried down to the tensor fascia and appropriate interval was identified. Serial fluoroscopic images confirmed positioning of the incision and the dissection. The anterior capsule was opened. It should be noted that the only purulence found on dissection was superficial just below the skin. There was no purulence within the hip capsule. Deep tissue cultures were taken. Once adequate exposure was made, I disengaged the femoral head from the Hewitt taper and then appropriate capsular releases were performed along with leg positioning and the elevating hook and a Richmond table, I was able to achieve excellent proximal femoral exposure. I then made attempt to explant the femoral stem from the top without having to make osteotomy, but I was unable to do so, so I did proceed to doing a modified anterior extended osteotomy utilizing an oscillating saw as well as a drill and utilizing osteotomes to create a controlled fracture. I was then able to use a jasvir and osteotomes to disengage the femoral stem from the femur. I then placed 2 cables to repair the osteotomy at this time and then turned my attention to the acetabulum where acetabular shell was disengaged utilizing explantation blade from [employer]. This was done uneventfully and without complication. I then reamed the acetabulum as a form of debridement. Thorough irrigation was performed of both the acetabulum and femoral canal. This was done with pulse lavage. I then mixed one batch of cement to create the femoral antibiotic spacer. This included 3 grams of vancomycin per 40 gram batch as well as 2 grams of cephalosporin. The specific cephalosporin was cefotaxime. The first batch of cement was used to make the femoral spacer in a standard fashion. I then went ahead and used two batches of the same concentrations per 40 gram batch to create the femoral head. Trialing was performed with broaches and trial head to confirm appropriate implant sizing and [address] [address] OPERATIVE REPORT Name: KADEEM SOLIS Room: [address] M.R.#: [id number] Admission: 06/02/18 Attend Phys: Jey Ronquillo Discharge: Date of : 56 Report #: [id number] leg length and offset. Stability was shown to be appropriate. This was done prior to making our spacers. Once cement had cured, I then implanted the final stem in a press-fit fashion and utilized a small amount of cement at the superior aspect of the femur as a spot weld to help immobilize the femoral component. The spacer head was impacted on the Hewitt taper and the hip was reduced. Final C-arm fluoroscopic images confirmed appropriate implant placements, sizing as well as leg length and offset. Intraoperative stability seemed to be appropriate. Thorough irrigation was performed. Periarticular blocks utilized containing Marcaine, morphine, Toradol, epinephrine and normal saline. Tensor fascia was closed with a #1 Stratafix suture in a running locked fashion. Subcuticular closure was performed with 2-0 Monocryl in simple inverted interrupted fashion. The skin was closed with a running 3-0 Stratafix subcuticular suture with Dermabond to skin. Sterile dressings were applied. The patient tolerated the procedure well. Sponge and needle counts were correct x 2. The patient was taken to recovery room in stable condition. <ELECTRONICALLY SIGNED> By: Zach Hayes DO 06/16/18 0810 [id number] Cantu DO /sara
[2018-06-16] MEDS ORDERED: VANCO 1 GR1 GM/150 M IV (09:26)
[2018-06-16] MEDS ORDERED: OXYCODONE HCL 55 MG PO (09:49)
[2018-06-16] MEDS ORDERED: ASPIRIN325 PO (09:51)
--- NOTE | 2018-06-16 10:48 | NUR ---
SPOKE WITH [facility]. SHE SAID THEY CAN ACCEPT PT.TODAY. SHE WILL SCHEDULE [facility] FOR 1330. FAXED DISCHARGE ORDERS TO HER. CHART COPIED TO GO WITH PT. NURSING TO CALL REPORT. NURSING TO INFORM PT.OF DISCHARGE TIME.
--- NOTE | 2018-06-16 13:30 | NUR ---
report called to [employer], spoke with Lesli for report.
--- NOTE | 2018-06-16 14:39 | NUR ---
PT DC'D TO [place] WITH ALL BELONGINGS. DC PACKET SENT WITH PT. PREVENA WOUND VAC IN PLACE. PT C/O NAUSEA AND GIVEN ZOFRAN. NO OTHER C/O. SINGLE LUMEN PICC LINE REMAINS IN PLACE [facility]
--- NOTE | 2018-06-25 12:44 | NUR ---
LATE ENTRY FOR 06-03-2018 10:30 AM RIGHT BASILIC VESSEL ACCESSED FOR 4 [place]INESE PICC. LINE PRE-TRIMMED AND ADVANCED TO THE ZERO TREY WITH NO RESISTANCE MET. SHERLOCK MAGNET AND [facility] CONFRIMATION OF TIP TERMINATION IN THE CAVOATRIAL JUNCTION. STYLET REMOVED AND INSERTION SITE DRESSED. REPORT GIVEN TO JASS TALLEY.
== END 2018-06-16 14:40 | DRG 498 ==
LOC: M.TBA 06:17 → M.PRE 06:50 → M.2W 17:12 → M.ORTHSURG 06-06 15:35
PROVIDERS: Family Medicine; Internal Medicine; Orthopaedic Surgery; ADMIT Internal Medicine
PROC: 0QB70ZZ Excision of Left Upper Femur, Open Approach (ICD-10-PCS; principal; 2018-06-02)
PROC: 0SHB08Z Insertion of Spacer into Left Hip Joint, Open Approach (ICD-10-PCS; principal; 2018-06-02)
PROC: 02HV33Z Insertion of Infusion Device into Superior Vena Cava, Percutaneous Approach (ICD-10-PCS; 2018-06-03)
PROC: 30233N1 Transfusion of Nonautologous Red Blood Cells into Peripheral Vein, Percutaneous Approach (ICD-10-PCS; 2018-06-05)
DX: T84.52XA Infection and inflammatory reaction due to internal left hip prosthesis, initial encounter (principal); R65.11 Systemic inflammatory response syndrome (SIRS) of non-infectious origin with acute organ dysfunction; E43 Unspecified severe protein-calorie malnutrition; N17.9 Acute kidney failure, unspecified; E11.9 Type 2 diabetes mellitus without complications; F17.210 Nicotine dependence, cigarettes, uncomplicated; D47.3 Essential (hemorrhagic) thrombocythemia; Y83.8 Other surgical procedures as the cause of abnormal reaction of the patient, or of later complication, without mention of misadventure at the time of the procedure; D64.9 Anemia, unspecified; E87.6 Hypokalemia; K59.00 Constipation, unspecified; Y92.89 Other specified places as the place of occurrence of the external cause; Z68.31 Body mass index [BMI] 31.0-31.9, adult; Z79.01 Long term (current) use of anticoagulants; Z79.84 Long term (current) use of oral hypoglycemic drugs; Z79.4 Long term (current) use of insulin; Z79.899 Other long term (current) drug therapy; Z91.041 Radiographic dye allergy status

== ENCOUNTER → 2018-08-25 | Outpatient (CLI) | payer OTHER ==
[~2018-08-25] MED LIST changes: +COLACE 100 MG100 MG PO; +CYCLOBENZAPRINE10 MG PO; +ELIQUIS5 MG PO; +FERREX 150 PLU1 EAC1 PO; +FLUCONAZOLE 10100 MG PO; +GLUCOPHAGE1000 MG PO; +HUMALOG100 UNIT/1 SUBQ; +LIDOPATCH1 EACH TOP; +MIRALAX17 GM PO; +NORVASC5 MG PO; +RESTORIL15 MG PO; +VANCO 1 GR1 GM/150 M IV
[2018-08-25 13:09] LABS: ABSOLUTE BASOPHILS 0.2 thou/uL (0.0-0.2); ABSOLUTE EOSINOPHILS 0.2 thou/uL (0.0-0.7); ABSOLUTE LYMPHOCYTES 3.2 thou/uL (0.8-5.3); ABSOLUTE NEUTROPHILS 14.2 thou/uL (1.6-8.1); BASOPHILS 0.8 %; EOSINOPHILS 1.1 %; HEMATOCRIT 39.3 % (37.0-47.0); HEMOGLOBIN 12.7 gm/dL (12.0-15.0); MCHC 32.3 g/dL (28.0-37.0); MCV 89.9 fL (80.0-100.0); MONOCYTES 5.1 %; MPV 7.4 fl. (7.2-11.1); NUCLEATED RBCS 0 /100WBC; PLATELET COUNT* 507 thou/uL (150-400); RBC 4.38 mil/uL (4.20-5.00); RDW-CV 20.8 % (10.5-14.5); WBC 18.7 thou/uL (4.0-11.0)
[2018-08-25 13:29] LABS: PLATELET ESTIMATE ADEQUATE
[2018-08-25 14:13] LABS: ESR (SEDRATE) 18 mm/hr (0-30)
== END ==
LOC: M.LAB 12:44
PROVIDERS: Orthopaedic Surgery
DX: M25.552 Pain in left hip (principal); M79.89 Other specified soft tissue disorders